=== PATIENT | female | born 1965 | race Caucasian/White ===

== ENCOUNTER 2018-11-29 12:20 | Day surgery (SDC) | payer OTHER ==
[~2018-11-29] VITALS: Ht 165.1 cm; Wt 74.8 kg
[~2018-11-29 12:20] MED LIST: DOCU100 PO; EPIN.3I IM; ESTR2 PO; HYDACE5 PO; HYDR1TAB94 PO; IBUP600 PO; IBUP800 PO; LEVO750 PO; Milk Of Ma800 MG/5 M PO; RXHYD5325 PO; SIME80CH PO
--- NOTE | 2018-11-29 13:15 | NUR ---
PT ADMITTED TO [facility]. AGREES WITH PLANNED PROCEDURE. PT IS UPSET ABOUT NOT BEING ABLE TO EAT OR DRINK ANYTHING TODAY AND SITTING OUT IN THE WAITING AREA. WAS IN WAITING AREA APPOX 30 MINUTES.
[2018-11-29] MEDS ORDERED: ESTRODIAL (13:28)
--- NOTE | 2018-11-29 15:27 | NUR ---
Patient up to Ambulate independently. Gait steady. Discharge instructions reviewed with patient. Patient verbalizes understanding. Copy given to patient to take home. Patient States Post-Procedure ride home has been arranged. Discharged via wheelchair to private car for ride home.
== END 2018-11-29 22:39 | disposition home or self-care (01) ==
LOC: ORSCMMR 12:20 → ORD 14:00 → ORSCMMR 14:00
PROVIDERS: Student in an Organized Health Care Education/Training Program
PROC: 0DBN8ZX Excision of Sigmoid Colon, Via Natural or Artificial Opening Endoscopic, Diagnostic (ICD-10-PCS; principal; 2018-11-29 14:00)
DX: Z12.11 Encounter for screening for malignant neoplasm of colon (principal); K63.5 Polyp of colon; K64.9 Unspecified hemorrhoids
CPT/HCPCS: 88305; J7120